=== PATIENT | female | born 1975 | race Caucasian/White ===

== ENCOUNTER 2018-08-07 14:30 | Emergency (ER) | payer MEDICAID ==
[2018-08-07 15:03] LABS: ADD MAN DIFF? NO
[2018-08-07 15:10] LABS: WHITE BLOOD COUNT 8.1 10^3/ul (4.8-10.8)
[2018-08-07 15:10] LABS: BASOPHILS % 0.5 % (0.0-2.0); EOSINOPHILS # 0.1 10^3/ul (0.0-0.5); EOSINOPHILS % 1.2 % (0.0-7.0); HEMATOCRIT 36.8 % (37.0-47.0); HEMOGLOBIN 12.1 g/dl (12.0-16.0); LYMPHOCYTES # 0.8 10^3/ul (0.8-2.9); LYMPHOCYTES % 9.4 % (15.0-51.0); MEAN CORPUSCULAR HEMOGLOBIN 27.8 pg (29.0-33.0); MEAN CORPUSCULAR HGB CONC 32.9 g/dl (32.0-37.0); MEAN CORPUSCULAR VOLUME 84.4 fl (82.0-101.0); MEAN PLATELET VOLUME 10.2 fl (7.4-10.4); MONOCYTE # 0.7 10^3/ul (0.3-0.9); MONOCYTES % 8.6 % (0.0-11.0); NEUTROPHIL # 6.4 10^3/ul (1.6-7.5); NEUTROPHILS % 79.9 % (39.0-77.0); PLATELET COUNT 341 10^3/UL (140-415); RED BLOOD COUNT 4.36 10^6/ul (4.20-5.40); RED CELL DISTRIBUTION WIDTH 12.8 % (11.5-14.5)
[2018-08-07 15:19] LABS: ADD UMIC YES; UR ASCORBIC ACID NEGATIVE (NEGATIVE); UR BILIRUBIN (Dip) NEGATIVE (NEGATIVE); UR BLOOD (Dip) 2+ mg/dL (NEGATIVE); UR CLARITY SLIGHTLY CLOUDY (CLEAR); UR COLOR YELLOW (YELLOW); UR GLUCOSE (Dip) NEGATIVE (NEGATIVE); UR KETONES (Dip) NEGATIVE (NEGATIVE); UR LEUKOCYTE ESTERASE (Dip) NEGATIVE Leu/ul (NEGATIVE); UR NITRITE (Dip) NEGATIVE (NEGATIVE); UR RBC 1 /HPF (0-5); UR SPECIFIC GRAVITY (Dip) 1.021 (1.003-1.030); UR TOTAL PROTEIN (Dip) NEGATIVE (NEGATIVE); UR UROBILINOGEN (Dip) NEGATIVE (NEGATIVE); UR WBC 1 /HPF (0-5)
[2018-08-07 15:26] LABS: INR 1.02; PROTIME 13.5 Sec (11.9-14.9); PT RATIO 1.1
[2018-08-07 15:27] LABS: PARTIAL THROMBOPLASTIN TIME 30.7 Sec (23.0-35.0)
[2018-08-07 15:39] LABS: ALANINE AMINOTRANSFERASE 23 IU/L (13-69); ALBUMIN 4.4 g/dl (3.3-4.9); ALBUMIN/GLOBULIN RATIO 1.18; ALKALINE PHOSPHATASE 90 IU/L (42-121); ANION GAP 18 (5-13); ASPARTATE AMINO TRANSFERASE 23 IU/L (15-46); BILIRUBIN,INDIRECT 0.1 mg/dl (0-1.1); BILIRUBIN,TOTAL 0.1 mg/dl (0.2-1.3); BLOOD UREA NITROGEN 7 mg/dl (7-20); CALCIUM 9.2 mg/dl (8.4-10.2); CARBON DIOXIDE 20 mmol/L (21-31); CHLORIDE 101 mmol/L (97-110); CREATINE KINASE 53 IU/L (23-200); CREATININE 0.58 mg/dl (0.44-1.00); Estimated GFR > 60 mL/min (>60); GLUCOSE 110 mg/dl (70-220); POTASSIUM 4.2 mmol/L (3.5-5.1); SODIUM 139 mmol/L (135-144); TOTAL PROTEIN 8.1 g/dl (6.1-8.1)
[2018-08-07 15:49] LABS: CK INDEX 0.4
[2018-08-07 15:51] LABS: B-TYPE NATRIURETIC PEPTIDE 60 PG/ML (0-125); TROPONIN-I < 0.012 ng/ml (0.000-0.120)
[2018-08-07] MEDS: ONDANSETRON 4 MG INJ IV ×3 (16:03→21:13)
[2018-08-07] MEDS: ACETAMINOPHEN 500 MG TAB PO (16:04)
[2018-08-07] MEDS: SOD CHLORIDE 0.9% 1,000 ML IV (16:05)
[2018-08-07] MEDS: morphine 4 MG/ML VIAL IV (16:05)
[2018-08-07] MEDS: KETOROLAC 30 MG INJ IV (16:05)
[2018-08-07] MEDS: ASPIRIN 325 MG TAB PO (16:05)
[2018-08-07 16:08] LABS: CK-MB < 0.22 ng/ml (0.0-2.4)
[2018-08-07] MEDS: NITROGLYCERIN (SL) 0.4 MG TAB SL (16:14)
[2018-08-07] MEDS: SOD CHLORIDE 0.9% 100 ML (17:39)
[2018-08-07] MEDS: IOHEXOL 300MG/ML 150 ML BTL (17:39)
[2018-08-07] MEDS: HYDROmorphONE 1 MG/ML SYG IV (20:23)
[2018-08-07] MEDS: ONDANSETRON (ODT) 4 MG TAB ODT (23:47)
== END 2018-08-07 23:47 | disposition home or self-care (01) ==
LOC: E/R 23:47
DX: M94.0 Chondrocostal junction syndrome [Tietze] (principal); R10.31 Right lower quadrant pain; R10.2 Pelvic and perineal pain
CPT/HCPCS: 36415; 71045; 74177; 76830; 76856; 80053; 81001; 81025; 82550; 82553; 83605; 83880; 84484; 85025; 85610; 85730; 87400; 93005; 96374; 96375; 96376; 99285-25